=== PATIENT | female | born 1990 | race Caucasian/White ===

== ENCOUNTER 2021-11-30 12:37 | Emergency (ER) | payer MEDICAID ==
[~2021-11-30] VITALS: Ht 167.6 cm; Wt 73.0 kg
[2021-11-30] MEDS ORDERED: D-ME473S50 PO (15:57)
[2021-11-30] MEDS ORDERED: NAPR-681 PO (15:57)
[2021-11-30 16:23] VITALS: BP 122/64
== END 2021-11-30 16:22 | disposition home or self-care (01) ==
LOC: ER 12:37
DX: J06.9 Acute upper respiratory infection, unspecified (principal)
CPT/HCPCS: 99283